=== PATIENT | male | born 1955 | race Caucasian/White ===

== ENCOUNTER 2021-08-12 08:54 | Outpatient (CLI) | payer OTHER | END 2021-08-12 08:55 | disposition home or self-care (01) | LOC: LAB 08:54 | PROVIDERS: ATTEND Orthopaedic Surgery | DX: D64.9 Anemia, unspecified (principal); E88.9 Metabolic disorder, unspecified; D68.8 Other specified coagulation defects; A49.02 Methicillin resistant Staphylococcus aureus infection, unspecified site; E11.9 Type 2 diabetes mellitus without complications; Z76.89 Persons encountering health services in other specified circumstances; I10 Essential (primary) hypertension; I49.9 Cardiac arrhythmia, unspecified; N39.0 Urinary tract infection, site not specified ==

== ENCOUNTER 2021-08-27 08:49 | Day surgery (SDC) | payer OTHER ==
[~2021-08-27] VITALS: Ht 177.8 cm; Wt 123.4 kg
[~2021-08-27 08:49] MED LIST: IRBESARTAN-HCT1 EACH PO; SYNTHROID75 MCG PO; VERELAN120 MG PO
== END 2021-08-27 22:00 | disposition home or self-care (01) ==
LOC: CIR.AMB 08:49
PROVIDERS: ATTEND Orthopaedic Surgery
DX: M23.231 Derangement of other medial meniscus due to old tear or injury, right knee (principal); Z20.822 Contact with and (suspected) exposure to COVID-19; M22.41 Chondromalacia patellae, right knee; M13.861 Other specified arthritis, right knee; I10 Essential (primary) hypertension; J44.9 Chronic obstructive pulmonary disease, unspecified; Z99.89 Dependence on other enabling machines and devices; Z87.891 Personal history of nicotine dependence; R73.03 Prediabetes; E66.9 Obesity, unspecified

== ENCOUNTER 2021-09-09 11:53 | Outpatient (CLI) | payer OTHER | END 2021-09-09 13:41 | disposition home or self-care (01) | LOC: RAD 11:53 | PROVIDERS: ATTEND Orthopaedic Surgery | DX: M25.561 Pain in right knee (principal); M25.562 Pain in left knee ==

== ENCOUNTER 2022-10-09 16:14 | Emergency (ER) | payer OTHER ==
[~2022-10-09] VITALS: Ht 152.4 cm; Wt 127.0 kg
[2022-10-09] MEDS ORDERED: ECOTRIN81 MG (16:19)
== END 2022-10-09 18:27 | disposition home or self-care (01) ==
LOC: ER 16:14
DX: R00.2 Palpitations (principal); I10 Essential (primary) hypertension; E03.9 Hypothyroidism, unspecified